=== PATIENT | female | born 1930 | race Caucasian/White ===

== ENCOUNTER 2019-03-02 09:11 | Emergency (ER) | payer OTHER ==
[2019-03-02] MEDS ORDERED: NS 1,000 ML IV ONE (09:17)
[2019-03-02] MEDS ORDERED: OXYCODONE/APAP 5/325 TAB PO ONE (09:19)
--- NOTE | 2019-03-02 09:24 | EDPHY ---
H & P Source: Patient, Family (), RN/MD, EMS Exam Limitations: Physical impairment (dementia) Time Seen by Provider: 03/02/19 09:19 HPI/ROS: HPI: This is an 88-year-old female who presents with Chief Complaint: Fall out of bed, low back pain Location: Lumbar back Quality: Constant pain Duration: Unknown Signs and Symptoms: No bleeding, no radiation, no numbness, no weakness, no tingling, no incontinence, + decreased range of motion, no swelling, + pain, no fever Timing: Acute on chronic Severity: 05/05 Context: Patient presents via EMS when they were called to her private residence for a fall from the bed by her . Upon arrival patient was laying on the ground and complaining of low back pain. reports that she always has back pain. Patient confirms that she has chronic low back pain. Does not take any blood thinners or any other regular medications. Patient denies LOC/head injury/neck pain/dizziness/nausea/vomiting/amnesia. EMS noted that the house was in disarray, unsafe living conditions and "hoarder like." Police contacted Adult protective Services per EMS. Patient required assistance for transfer from EMS stretcher to ER stretcher. arrived at bedside approximately 30 min after the patient's arrival and reports the fall details. was helping patient get out of bed as "she is weak" and they lost their balance and she slowly slumped down onto the floor. Patient's relates that she did not fall from standing/bed. She immediately complained of back pain and he was unable to pick her up. He relates that she only eats one peanut butter and jelly sandwich per day. Very poor appetite. [place] patient. Modifying Factors: None Comment: ROS: A comprehensive 10 system review of systems is otherwise negative aside from elements mentioned in the history of present illness. MEDICAL/SURGICAL/SOCIAL HISTORY: Medical history: Dementia. Does not take any regular medications. Surgical history: Denies Social history: , lives with her . Nonsmoker. Family history noncontributory. CONSTITUTIONAL: Petite, frail, elderly white female, smells of urine, awake and alert, no obvious distress HEENT: Atraumatic and normocephalic. Dentures top and bottom in place. Dry oral mucosa. NECK: supple, no midline tenderness, flexion 45 degrees, extension 45 degrees, right and left lateral flexion 45 degrees. No meningismus. Cardiovascular: Normal S1/S2, regular rate, regular rhythm, without murmur rub or gallop. PULMONARY/CHEST: Symmetrical and nontender. no crepitus. Clear to auscultation bilaterally. Good air movement. No accessory muscle usage. ABDOMEN: Soft, nondistended, nontender, no ecchymosis. PELVIC: moderate pain with rocking; bilateral hips flexion 125 degrees, extension 30 degrees, mild pain internal rotation and mild pain external rotation. BACK: Thoracic kyphoscoliosis noted; lumbar midline tenderness, no paraspinous spasm, deep tendon reflexes 2/2, moderate pain with bilateral straight leg raise , No foot drop. Achilles reflexes are equal bilaterally. EXTREMITIES: 2/2 pulses, strength 5/5, DIP/PIP/MCP flexion/extension intact with good light touch sensation. no deformities, no clubbing, no cyanosis, no edema. NEUROLOGICAL: Alert to self, place, date of . Short and long-term memory deficits noted. Light touch sensation intact. SKIN: Warm and dry, pallor, no erythema. no rash. Good capillary refill. ([place]) Constitutional: Initial Vital Signs Temperature (C) 36.9 C 03/02/19 09:15 Heart Rate 74 03/02/19 09:15 Respiratory Rate 16 03/02/19 09:15 Blood Pressure 180/83 H 03/02/19 09:15 O2 Sat (%) 96 03/02/19 09:15 O2 Delivery Mode Room Air Allergies/Adverse Reactions: No Known Allergies Allergy (Verified 03/02/19 09:45) Medical Decision Making ED Course/Re-evaluation: Vital signs reviewed and stable upon arrival. IV access, laboratory studies, urinalysis, CT head and CT lumbar spine ordered Given 1 L normal saline and p.o. Percocet Based on nexus protocol of age greater than 65 years old, head CT imaging ordered Patient has midline tenderness with fall and complaints of back pain, lumbar CT ordered 0940: Notified by tech that i-STAT shows H&H stable, creatinine 0.7, potassium 3.9, glucose 112 1020: Notified by tech that troponin 0.01 1050: Urinalysis shows 1+ ketones but no signs of infection. 1055: Called by radiologist, Dr. Mondragon, who reports CT head shows no acute intracranial process. CT lumbar spine shows moderate to severe compression fracture at T11, mild-to- moderate compression fracture at T12-L1, moderate compression fracture at T10- all with mild retropulsion but no significant spinal canal narrowing. 1100: ED decision to consult Sam for transfer patient for 3 compression fractures, fall from bed, generalized weakness. Accepting physician at [facility] ED observation unit is Napoleon Rocha. Images placed on disc. Advised that Sam will arrange transport. No signs of neurovascular compromise/tenting of skin/compartment syndrome/ extremities and joints examined above and below area of concern and are neurovascularly intact/cauda equine syndrome/saddle anesthesia. This patient was seen under the supervision of my secondary supervising physician. I evaluated and cared for this patient with attending. (Vanessa Palacios) I did not see this patient while she was in the emergency department. However her care was discussed with the PA while the patient was in the department. I agree with treatment plan and management (Aryan Wyman) Differential Diagnosis: Back pain including but not limited to muscular pain, herniated disc, spine fracture, intra-abdominal causes and urinary tract infection. (Vanessa Palacios) - Data Points Laboratory Results: Laboratory Results 03/02/19 09:30 03/02/19 09:30 Medications Given: Discontinued Medications Sodium Chloride (Ns) 1,000 mls @ 0 mls/hr IV ONCE ONE; Wide Open PRN Reason: Protocol Stop: 03/02/19 09:18 Last Admin: 03/02/19 09:45 Dose: 1,000 mls Oxycodone/Acetaminophen (Percocet 5/325) 1 tab PO EDNOW ONE Stop: 03/02/19 09:20 Last Admin: 03/02/19 11:28 Dose: 1 tab Point of Care Test Results: Chemistry 03/02/19 03/02/19 09:41 09:37 POC Sodium 139 mEq/L mEq/L (135-145) POC Potassium 3.9 mEq/L mEq/L (3.3-5.0) POC Chloride 98 mEq/L mEq/L (97-110) POC Total CO2 29 mEq/L mEq/L (22-31) POC BUN 14 mg/dL mg/dL (7-23) POC Creatinine 0.7 mg/dL mg/dL (0.6-1.0) POC Glucose 112 mg/dL H mg/dL (70-100) POC Troponin I 0.01 ng/mL ng/mL (0.00-0.08) ISTAT H&H 03/02/19 09:37 POC Hgb 15.0 gm/dL gm/dL (12.6-16.3) POC Hct 44 % % (38-47) Departure - Departure Disposition: Acute Care Hospital Not [facility] Clinical Impression: Generalized weakness, Lumbar compression fracture, Compression fracture of thoracic vertebra, Accidental fall from bed, Unable to ambulate Condition: Fair Referrals: BETO SOMMERS MD [Other] - As per Instructions
[2019-03-02 09:51] LABS: PLATELET COUNT 357 10^3/uL (150-400)
[2019-03-02 10:01] LABS: INR 1.06 (0.83-1.16); PROTIME(PATIENT) 13.4 SEC (12.0-15.0)
[2019-03-02] MEDS ORDERED: OXYCODONE/APAP 5/325 TAB ONE (11:27)
[2019-03-02 12:15] VITALS: BP 119/83
== END 2019-03-02 12:12 | disposition short-term general hospital (02) ==
DX: M48.56XA Collapsed vertebra, not elsewhere classified, lumbar region, initial encounter for fracture (principal); M48.54XA Collapsed vertebra, not elsewhere classified, thoracic region, initial encounter for fracture; R53.1 Weakness; E86.9 Volume depletion, unspecified; W06.XXXA Fall from bed, initial encounter; Y92.003 Bedroom of unspecified non-institutional (private) residence as the place of occurrence of the external cause
CPT/HCPCS: 82435-PO; 82565-PO; 82947-PO; 84132-PO; 84295-PO; 84484-ER; 84520-PO; 85014-ER